=== PATIENT | male | born 1945 | race Caucasian/White ===

== ENCOUNTER 2024-12-31 11:13 | Emergency (ER) | payer MEDICARE, SELFPAY ==
[2024-12-31] VITALS (30 sets, daily range): BP systolic 88–137; BP diastolic 51–99; PULSE 54–69; RESP 10–22; TEMP 35.7; O2SAT 84–99; BMI 22.6
--- NOTE | 2024-12-31 11:59 | CRLHL7_ITS ---
For Patients: As a result of the Century Cures Act, medical imaging exams and procedure reports are released immediately into your electronic medical record. You may view this report before your referring provider. If you have questions, please contact your health care provider. INDICATION: FALL TODAY. VERTIGO X 2 DAYS. (Sic) COMPARISON: None available. TECHNIQUE: CT of the head without intravenous contrast. Please note that all CT scans at this facility use dose modulation, iterative reconstruction, and/or weight-based dosing when appropriate to reduce radiation dose to as low as reasonably achievable. FINDINGS: No acute traumatic injury is identified. No acute infarct. No intracranial mass or mass effect. No hydrocephalus. No intracranial hemorrhage. Incidental bilateral cerebral white matter heterogeneous hypoattenuation consistent with small-vessel distribution chronic ischemic gliotic changes. 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 RapidAI ASPECTS Score: Not performed/available at the time of dictation. Intact skull base and cranial vault. Visualized orbits are without significant incidental findings. Bilateral lens implants. Near-complete opacification of the right maxillary sinus. Left maxillary sinus retention cyst. Visualized paranasal sinuses and mastoid air cells are otherwise clear. Unremarkable soft tissues. IMPRESSION: 1. No acute traumatic injury is identified. 2. No significant incidental findings. 3. Additional findings as above. Please note that all CT scans at this facility use dose modulation, iterative reconstruction, and/or weight-based dosing when appropriate to reduce radiation dose to as low as reasonably achievable. Dictated by Michael London MD @ 12/31/2024 12:35:16 PM (Electronically Signed)
--- NOTE | 2024-12-31 12:15 | ED.GENADULT ---
HPI - General Adult General Date Seen: 12/31/24 Chief complaint: Dizziness/Vertigo Stated complaint: dizzy different then normal Time Seen by Provider: 12/31/24 11:16 History of Present Illness HPI narrative: Patient is a 79-year-old here with his daughter for evaluation after a fall. Past medical history notable for congestive heart failure, EF of 15%, as well as renal failure, with a recent hospitalization at [facility]. He was discharged from there on November 27 and then was at [facility] it sounds like for a little rehab until the . 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 He has recently transitioned over to [place] and his daughter says that his mangle catcher, recreation supervisor and primary doctor all with them now. He does have an appointment tomorrow with his primary doctor for hospital follow-up. Today he was in the kitchen, he says that he had tips his head back to drink and got dizzy lost his balance and fell hitting the front of his head and landing on his right knee. He did not have any other vertiginous symptoms and is not symptomatic now, he feels that it was set off by tipping his head back to quickly. He does note for the past week he has been feeling kind of sluggish, fatigued, has had some lightheadedness with standing. He has been on a strict 1500 mL a day fluid restriction which he says his daughter has kept him on without fail. He did have a little extra fluid yesterday and fell he tolerated that well. His weight was 163 when he was discharged and is down to 157. It sounds like there was not a plan to try and pull more fluid off after he left the hospital but he does note that his weight continues to decrease. He is on torsemide for diuretic. His creatinine went up to about 1.9 but was at 1.57 at discharge and his daughter says that the recreation supervisor was happy with that. He has not had chest pain, has not had any difficulty breathing, cough or other respiratory symptoms. Related Data Home Medications ?Medication ?Instructions ?Recorded ?Confirmed apixaban 5 mg tablet 5 mg PO BID 12/31/24 12/31/24 brimonidine 0.2 % eye drops 1 drp ophthalmic (eye) BID 12/31/24 12/31/24 bupropion HCl 100 mg tablet,12 hr 100 mg PO BID 12/31/24 12/31/24 sustained-release (Wellbutrin SR) carvedilol 6.25 mg tablet 6.25 mg PO BID 12/31/24 12/31/24 cholecalciferol (vitamin D3) 50 125 mcg PO QDAY 12/31/24 12/31/24 mcg (2,000 unit) capsule (Vitamin D3) dorzolamide 22.3 mg-timolol 6.8 1 drp ophthalmic (eye) BID 12/31/24 12/31/24 mg/mL eye drops duloxetine 30 mg capsule,delayed 30 mg PO DAILY 12/31/24 12/31/24 release sprinkle (Drizalma Sprinkle) empagliflozin 25 mg-linagliptin 5 1 tab PO DAILY 12/31/24 12/31/24 mg tablet evolocumab 140 mg/mL subcutaneous 140 mg subcut Q2W 12/31/24 12/31/24 pen injector insulin aspart U-100 100 unit/mL 6 unit subcut TID 12/31/24 12/31/24 (3 mL) subcutaneous pen (Novolog FlexPen U-100 Insulin aspart) insulin glargine 100 unit/mL (3 30 unit subcut QAM 12/31/24 12/31/24 mL) subcutaneous pen levothyroxine 150 mcg capsule 150 mcg PO DAILY 12/31/24 12/31/24 loratadine 10 mg capsule (Allergy 10 mg PO DAILY 12/31/24 12/31/24 Relief (loratadine)) omeprazole 40 mg capsule,delayed 40 mg PO DAILY 12/31/24 12/31/24 release sildenafil 25 mg tablet 25 mg PO DAILY PRN 12/31/24 12/31/24 torsemide 20 mg tablet 20 mg PO DAILY 12/31/24 12/31/24 valsartan 80 mg tablet (Diovan) 80 mg PO BID 12/31/24 12/31/24 Allergies Allergy/AdvReac Type Severity Reaction Status Date / Time glipizide Allergy Intermediate Muscle Pain Verified 12/31/24 11:43 Iodinated Contrast Media Allergy Mild nausea and Verified 12/31/24 11:43 vomiting lisinopril Allergy Mild Cough Verified 12/31/24 11:43 [id number] Reductase Allergy Mild muscle pain Verified 12/31/24 11:43 Inhibitor amiodarone Allergy Unknown Verified 12/31/24 11:43 glyburide Allergy Unknown Verified 12/31/24 11:43 metformin Allergy Unknown Verified 12/31/24 11:43 metoprolol Allergy Unknown Verified 12/31/24 11:43 pioglitazone Allergy Unknown Verified 12/31/24 11:43 sitagliptin Allergy Unknown Verified 12/31/24 11:43 contrast dye Allergy Mild N an V Uncoded 12/31/24 11:43 Review of Systems Status of ROS: Reports: 10 or more systems reviewed and unremarkable except as noted in History and below [facility] Social History Smoking Status: Never smoker How often do you have a drink containing alcohol: never AUDIT-C Alcohol total score: 0 Non-prescribed substance use: denies use Exam Narrative: Exam Narrative: Vital signs reviewed In general, alert, nontoxic elderly male, breathing easily. Head: Normocephalic. He has a reddened area by his right eyebrow, no significant hematoma, no laceration. Eyes: Sclera clear. Pupils equal and reactive. Extraocular movements are full. ENT: Mucous membranes moist. Small red kenny over the right bridge of his nose, no bony tenderness or deformity. No epistaxis. Dentition intact. Neck: Supple without adenopathy. Nontender to palpation. Heart: Regular rate and rhythm without murmur. Lungs: Clear. No increased work of breathing, crackles or wheezes. Abdomen: Soft, nontender to palpation. Extremities: Well perfused, pulses intact. No significant edema. Bruising and the small abrasion on the right knee, no bony tenderness, no obvious effusion, full range of motion. Neurologic: Alert, conversant. Speech fluent, face symmetric. Moves all extremities equally. Skin: Warm, dry well perfused. Affect: Normal. Const: Vital Signs, click to edit/add: Vital Signs - 24 hr 12/31/24 11:20 12/31/24 11:59 12/31/24 12:27 Temperature 96.2 F L Pulse Rate 62 Pulse Rate [Right Pulse Oximeter] 62 Pulse Rate [orthos tatic lying Pulse Oximeter] Pulse Rate [orthos tatic sitting Puls e Oximeter] Pulse Rate [orthos tatic standing Pul se Oximeter] Respiratory Rate 16 14 Blood Pressure Blood Pressure [Le ft Upper Arm] 88/51 L Blood Pressure [or thostatic lying Ri ght Arm] Blood Pressure [or thostatic sitting Right Arm] Blood Pressure [or thostatic standing Right Arm] Pulse Oximetry 99 99 96 Oxygen Delivery Me thod Room Air 12/31/24 12:30 12/31/24 12:31 12/31/24 12:34 Temperature Pulse Rate 60 63 58 L Pulse Rate [Right Pulse Oximeter] Pulse Rate [orthos tatic lying Pulse Oximeter] Pulse Rate [orthos tatic sitting Puls e Oximeter] Pulse Rate [orthos tatic standing Pul se Oximeter] Respiratory Rate 22 Blood Pressure 135/89 126/95 H Blood Pressure [Le ft Upper Arm] Blood Pressure [or thostatic lying Ri ght Arm] Blood Pressure [or thostatic sitting Right Arm] Blood Pressure [or thostatic standing Right Arm] Pulse Oximetry 99 92 99 Oxygen Delivery Me thod 12/31/24 12:35 12/31/24 12:36 12/31/24 12:38 Temperature Pulse Rate 58 L 60 Pulse Rate [Right Pulse Oximeter] Pulse Rate [orthos tatic lying Pulse Oximeter] 64 Pulse Rate [orthos tatic sitting Puls e Oximeter] 63 Pulse Rate [orthos tatic standing Pul se Oximeter] 60 Respiratory Rate 13 Blood Pressure 108/76 Blood Pressure [Le ft Upper Arm] Blood Pressure [or thostatic lying Ri ght Arm] 135/89 Blood Pressure [or thostatic sitting Right Arm] 126/95 H Blood Pressure [or thostatic standing Right Arm] 108/76 Pulse Oximetry 97 Oxygen Delivery Me thod 12/31/24 12:47 12/31/24 13:00 12/31/24 13:02 Temperature Pulse Rate 61 61 63 Pulse Rate [Right Pulse Oximeter] Pulse Rate [orthos tatic lying Pulse Oximeter] Pulse Rate [orthos tatic sitting Puls e Oximeter] Pulse Rate [orthos tatic standing Pul se Oximeter] Respiratory Rate 10 L 12 Blood Pressure 134/79 Blood Pressure [Le ft Upper Arm] Blood Pressure [or thostatic lying Ri ght Arm] Blood Pressure [or thostatic sitting Right Arm] Blood Pressure [or thostatic standing Right Arm] Pulse Oximetry 96 91 99 Oxygen Delivery Me thod 12/31/24 13:15 12/31/24 13:30 12/31/24 13:31 Temperature Pulse Rate 60 61 Pulse Rate [Right Pulse Oximeter] Pulse Rate [orthos tatic lying Pulse Oximeter] Pulse Rate [orthos tatic sitting Puls e Oximeter] Pulse Rate [orthos tatic standing Pul se Oximeter] Respiratory Rate 10 L 16 Blood Pressure 133/84 Blood Pressure [Le ft Upper Arm] Blood Pressure [or thostatic lying Ri ght Arm] Blood Pressure [or thostatic sitting Right Arm] Blood Pressure [or thostatic standing Right Arm] Pulse Oximetry 99 98 Oxygen Delivery Mn thod 12/31/24 13:45 12/31/24 14:00 12/31/24 14:02 Temperature Pulse Rate 57 L 61 54 L Pulse Rate [Right Pulse Oximeter] Pulse Rate [orthos tatic lying Pulse Oximeter] Pulse Rate [orthos tatic sitting Puls e Oximeter] Pulse Rate [orthos tatic standing Pul se Oximeter] Respiratory Rate 20 Blood Pressure 137/99 H Blood Pressure [Le ft Upper Arm] Blood Pressure [or thostatic lying Ri ght Arm] Blood Pressure [or thostatic sitting Right Arm] Blood Pressure [or thostatic standing Right Arm] Pulse Oximetry 97 95 94 Oxygen Delivery Mn thod 12/31/24 14:15 12/31/24 14:30 12/31/24 14:34 Temperature Pulse Rate 60 58 L 61 Pulse Rate [Right Pulse Oximeter] Pulse Rate [orthos tatic lying Pulse Oximeter] Pulse Rate [orthos tatic sitting Puls e Oximeter] Pulse Rate [orthos tatic standing Pul se Oximeter] Respiratory Rate 10 L 11 L 13 Blood Pressure Blood Pressure [Le ft Upper Arm] Blood Pressure [or thostatic lying Ri ght Arm] Blood Pressure [or thostatic sitting Right Arm] Blood Pressure [or thostatic standing Right Arm] Pulse Oximetry 98 99 84 L Oxygen Delivery Mn thod 12/31/24 14:45 12/31/24 15:04 12/31/24 15:15 Temperature Pulse Rate 60 59 L Pulse Rate [Right Pulse Oximeter] Pulse Rate [orthos tatic lying Pulse Oximeter] Pulse Rate [orthos tatic sitting Puls e Oximeter] Pulse Rate [orthos tatic standing Pul se Oximeter] Respiratory Rate 15 14 11 L Blood Pressure Blood Pressure [Le ft Upper Arm] Blood Pressure [or thostatic lying Ri ght Arm] Blood Pressure [or thostatic sitting Right Arm] Blood Pressure [or thostatic standing Right Arm] Pulse Oximetry 96 97 Oxygen Delivery Me thod Course Course ED Course: Patient presents after a fall, with a 1 week history of fatigue and some lightheadedness with standing. Symptoms today leading to the fall sound like a positional vertigo episode, as he does not have any persistent symptoms to suggest a stroke. His blood pressure initially recorded was 88 systolic although he says that the cuff was over his sweatshirt at that time. When I was in the room his blood pressure was 132/86. Will check orthostatics, with continuing weight loss post hospitalization it may be that he is a little over diuresed at this point. Other diagnostic considerations would include metabolic derangement, arrhythmia, anemia, among others. I did receive some records on him from his recreation supervisor in [place]. They note the following: -ROBINSON with a peak creatinine of 2.12 on November 20 and then trended to prior baseline -Hypertension on valsartan, carvedilol, Jardiance, torsemide. Blood pressure tends to run low in the 100s over 60s. Frequent dizzy spells. -Mild hyponatremia -Coronary artery disease status post angiogram on 11/23/2024 with nonobstructive coronary artery disease, history of a flutter, anticoagulated with Eliquis. -CHF for years, most recent echo EF decreased to 15% in October of 2024. Dry weight 160-162. Evaluation here was notable for an initial troponin of 0.08, a normal white count, hemoglobin of 17.7. Mild hyponatremia at 1:28 a.m., potassium normal. BUN 45, creatinine 1.4 with a GFR 52, this is improved from previous. Blood sugar 135. LFTs unremarkable. BNP was 28 70, most recently when it was checked it was around 2100. I reviewed his head CT, I did not see evidence of hemorrhage or fracture. Radiology likewise read it negative for anything acute. They did note changes consistent with asymptomatic ventriculomegaly with features of normal pressure hydrocephalus. Patient does not have any findings suggestive of normal pressure hydrocephalus such as incontinence, gait disturbance or dementia. As such I think this is purely an incidental finding at this time. With regard to his troponin, I did check a 2 hour troponin and this was increased at 0.5. I talked with the mangle catcher on-call for [facility] [employer]. Patient did just have an angiogram a month ago that showed nonocclusive disease. Cardiology reviewed his records, and in the absence of chest pain, recommended no further action regarding these troponins. Discussed that with the patient and his daughter. They are comfortable with discharge. He will follow-up tomorrow as planned with his regular clinic doctor. Discussed that if he does develop chest pain or has other severe symptoms such as shortness of breath, nausea vomiting, fainting etcetera he should come back to the emergency department. Orthostatic vital signs were negative here. From a fluid standpoint, his BNP is mildly increased compared to previous, his kidney function is also mildly improved, but he is not showing signs of clinical fluid overload and his weight is below his recommended dry weight according to them. I recommended that he continue with his 1500 mL a day of fluid restriction. Vital Signs Vital signs: Initial Vital Signs Temperature 96.2 F L 12/31/24 11:20 Temperature Source Temporal Artery Scan 12/31/24 11:20 Pulse Rate 62 12/31/24 11:20 Respiratory Rate 16 12/31/24 11:20 Blood Pressure 88/51 L 12/31/24 11:20 Blood Pressure Mean 63 L 12/31/24 11:20 Blood Pressure Position Sitting 12/31/24 11:20 Pulse Oximetry 99 12/31/24 11:20 Oxygen Delivery Method Room Air 12/31/24 11:20 Vital Signs Temperature 96.2 F L 12/31/24 11:20 Pulse Rate 62 12/31/24 11:20 Respiratory Rate 16 12/31/24 11:20 Blood Pressure 88/51 L 12/31/24 11:20 Pulse Oximetry 99 12/31/24 11:20 Oxygen Delivery Method Room Air 12/31/24 11:20 Temperature 96.2 F L 12/31/24 11:20 Pulse Rate 59 L 12/31/24 15:15 Respiratory Rate 11 L 12/31/24 15:15 Blood Pressure 137/99 H 12/31/24 14:02 Pulse Oximetry 97 12/31/24 15:15 Oxygen Delivery Method Room Air 12/31/24 11:20 Medical Decision Making Lab Data Lab results reviewed: Yes I reviewed the patient's lab results Labs: Lab Results 12/31/24 12/31/24 12/31/24 Range/Units 11:59 12:05 14:15 WBC 8.90 (4.50-11.00) K/uL RBC 5.93 H (4.30-5.90) m/uL Hgb 17.7 H (13.5-17.5) gm/dL Hct 52.7 (37.0-53.0) % MCV 89 (80-100) fL MCH 30 (26-34) pg MCHC 34 (32-36) gm/dL RDW Coeff of Gustavo 12.0 (11.5-15.5) % Plt Count 151 (140-440) K/uL Neut % (Auto) 69.0 (42.0-72.0) % Lymph % (Auto) 16.5 L (20-44) % Villalba % (Auto) 12.9 H (0.0-11.0) % Eos % (Auto) 1.2 (0.0-7.0) % Baso % (Auto) 0.2 (0.0-3.0) % Neut # (Auto) 6.13 (1.7-7.0) K/uL Lymph # (Auto) 1.50 (0.90-2.90) K/uL Villalba # (Auto) 1.10 H (0.00-0.90) K/UL Eos # (Auto) 0.11 (0.00-0.50) K/uL Baso # (Auto) 0.02 (0.00-0.30) K/uL Abs Immat Gran (auto) 0.02 (0.00-0.30) K/uL Imm/Tot Granulo (auto) 0.2 % Sodium 128 L (135-149) mmol/L Potassium 3.7 (3.6-5.1) mmol/L Chloride 91 L (96-114) mmol/L Carbon Dioxide 32 (20-32) mmol/L Anion Gap 5 L (7-15) mEq/L BUN 45 H (7-30) mg/dL Creatinine 1.4 (0.5-1.5) mg/dL Estimated Creat Clear 44.68 Estimated GFR 52 ml/min Glucose 135 H (60-115) mg/dL Calcium 8.7 (8.4-10.6) mg/dL Magnesium 2.3 (1.5-2.6) mg/dL Total Bilirubin 0.8 (0.1-1.5) mg/dL AST 41 H (12-35) U/L ALT 39 (4-50) U/L Alkaline Phosphatase 103 (40-150) U/L Troponin I 0.08 H* 0.50 H* (0.01-0.04) ng/mL NT-Pro-B Natriuret Pep 2870 H (See Note) pg/mL Total Protein 6.7 (6.0-8.3) g/dL Albumin 4.0 (3.3-5.0) g/dL POC Troponin I 0.07 H (0.01-0.04) ng/ml Imaging Data CT scan - head: Attestation: I have reviewed the pertinent imaging results. Radiologist's impression: Patient: Michael Juarez MR#: [id number] : 1945 Acct:[id number] Loc: ED Service Date: 12/31/[address]: Ordering Physician: Carri Valentine M.D. Date of Service: 12/31/24 Procedure(s): CT head/brain wo con Accession Number(s): [id number] cc: Carri Valentine M.D.; Provider,Not a Local~ For Patients: As a result of the Cures Act, medical imaging exams and procedure reports are released immediately into your electronic medical record. You may view this report before your referring provider. If you have questions, please contact your health care provider. INDICATION: FALL TODAY. VERTIGO X 2 DAYS. (Sic) COMPARISON: None available. TECHNIQUE: CT of the head without intravenous contrast. Please note that all CT scans at this facility use dose modulation, iterative reconstruction, and/or weight-based dosing when appropriate to reduce radiation dose to as low as reasonably achievable. FINDINGS: No acute traumatic injury is identified. No acute infarct. No intracranial mass or mass effect. No hydrocephalus. No intracranial hemorrhage. Incidental bilateral cerebral white matter heterogeneous hypoattenuation consistent with small-vessel distribution chronic ischemic gliotic changes. 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 RapidAI ASPECTS Score: Not performed/available at the time of dictation. Intact skull base and cranial vault. Visualized orbits are without significant incidental findings. Bilateral lens implants. Near-complete opacification of the right maxillary sinus. Left maxillary sinus retention cyst. Visualized paranasal sinuses and mastoid air cells are otherwise clear. Unremarkable soft tissues. IMPRESSION: 1. No acute traumatic injury is identified. 2. No significant incidental findings. 3. Additional findings as above. Please note that all CT scans at this facility use dose modulation, iterative reconstruction, and/or weight-based dosing when appropriate to reduce radiation dose to as low as reasonably achievable. Dictated by Michael London MD @ 12/31/2024 12:35:16 PM Patient: Michael Juarez MR#: [id number] : 1945 Acct:[id number] Loc: ED Service Date: 12/31/[address]: Ordering Physician: Carri Valentine M.D. Date of Service: 12/31/24 Procedure(s): CT head/brain wo con Accession Number(s): [id number] cc: Carri Valentine M.D.; Provider,Not a Local~ ADDENDUM INDICATION: FALL TODAY. VERTIGO X 2 DAYS. (Sic) COMPARISON: None available. TECHNIQUE: CT of the head without intravenous contrast. Please note that all CT scans at this facility use dose modulation, iterative reconstruction, and/or weight-based dosing when appropriate to reduce radiation dose to as low as reasonably achievable. FINDINGS: No acute traumatic injury is identified. No acute infarct. No intracranial mass or mass effect. No hydrocephalus. No intracranial hemorrhage. Incidental bilateral cerebral white matter heterogeneous hypoattenuation consistent with small-vessel distribution chronic ischemic gliotic changes. 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 RapidAI ASPECTS Score: Not performed/available at the time of dictation. Intact skull base and cranial vault. Visualized orbits are without significant incidental findings. Bilateral lens implants. Near-complete opacification of the right maxillary sinus. Left maxillary sinus retention cyst. Visualized paranasal sinuses and mastoid air cells are otherwise clear. Unremarkable soft tissues. IMPRESSION: 1. No acute traumatic injury is identified. 2. No significant incidental findings. 3. Additional findings as above. Please note that all CT scans at this facility use dose modulation, iterative reconstruction, and/or weight-based dosing when appropriate to reduce radiation dose to as low as reasonably achievable. Dictated by Michael London MD @ 12/31/2024 12:35:16 PM ----- ADDENDUM ----- ADDENDUM: Incidental note is made of ventriculomegaly, bilateral sylvian fissure widening, upward bowing of the corpus callosum with an acute callosal angle, and narrow sulci and subarachnoid spaces at the vertex are consistent with disproportionately enlarged subarachnoid space hydrocephalus. 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 Dictated by Michael London MD @ Dec 31 2024 12:39PM ----- ADDENDUM ----- ADDENDUM: Addendum receipt by the ordering provider Block at 1244 hours [employer]. Dictated by Michael London MD @ Dec 31 2024 12:45PM Discharge Plan Discharge Clinical Impression: Fall, Dizziness Patient Disposition: Home, Self-Care Condition: Improved Additional Instructions: Your tests today are generally reassuring. Your troponin is slightly elevated but stable, your creatinine is improved at 1.4. Your head CT does not show any sign of acute injury. Events today are not suggestive of stroke. I would recommend that you see your primary doctor tomorrow as planned. For now, it seems that the 1500 mL a day fluid restriction is working well for you, as you seem to be euvolemic. Return any time for acute worsening or new symptoms. Prescriptions: No Action insulin glargine 100 unit/mL (3 mL) insulin pen 30 unit subcut QAM omeprazole 40 mg capsule,delayed release(DR/EC) 40 mg PO DAILY torsemide 20 mg tablet 20 mg PO DAILY bupropion HCl [Wellbutrin SR] 100 mg tablet sustained-release 12 hr 100 mg PO BID carvedilol 6.25 mg tablet 6.25 mg PO BID Rx Instructions: must administer with a meal/food valsartan [Diovan] 80 mg tablet 80 mg PO BID Drizalma Sprinkle 30 mg capsule, delayed rel sprinkle 30 mg PO DAILY brimonidine 0.2 % drops 1 drp ophthalmic (eye) BID Patient Comments: right eye dorzolamide-timolol 22.3-6.8 mg/mL drops 1 drp ophthalmic (eye) BID insulin aspart U-100 [Novolog FlexPen U-100 Insulin] 100 unit/mL (3 mL) insulin pen 6 unit subcut TID evolocumab 140 mg/mL pen injector 140 mg subcut Q2W apixaban 5 mg tablet 5 mg PO BID empagliflozin-linagliptin 25-5 mg tablet 1 tab PO DAILY levothyroxine 150 mcg capsule 150 mcg PO DAILY sildenafil 25 mg tablet 25 mg PO DAILY PRN Rx Instructions: administer 30 minutes to 4 hours before activity cholecalciferol (vitamin D3) [Vitamin D3] 50 mcg (2,000 unit) capsule 125 mcg PO QDAY Allergy Relief (loratadine) 10 mg capsule 10 mg PO DAILY Follow Up/Referrals: Provider,Not a Local [Primary Care Provider, Family Practice] Stand Alone [facility]: [facility] Instructions
[2024-12-31 12:17] LABS: Hematocrit* 52.7 % (37.0-53.0); Hemoglobin* 17.7 gm/dL (13.5-17.5); Immature Granulocytes Abs Auto 0.02 K/uL (0.00-0.30); Immature Granulocytes Pct Auto 0.2 %; Mean Corpuscular HGB Conc 34 gm/dL (32-36); Mean Corpuscular Hemoglobin 30 pg (26-34); Mean Corpuscular Volume 89 fL (80-100); RDW Coefficient of Variation % 12.0 % (11.5-15.5); Red Blood Count* 5.93 m/uL (4.30-5.90); White Blood Count* 8.90 K/uL (4.50-11.00)
[2024-12-31 12:25] LABS: Lymphocytes Absolute Auto 1.50 K/uL (0.90-2.90)
[2024-12-31 12:26] LABS: Slide Review Reflex No
[2024-12-31 12:29] LABS: Albumin* 4.0 g/dL (3.3-5.0); Chloride* 91 mmol/L (96-114); Potassium* 3.7 mmol/L (3.6-5.1); Sodium* 128 mmol/L (135-149)
[2024-12-31 12:32] LABS: Alanine Aminotransferase* 39 U/L (4-50); Alkaline Phosphatase* 103 U/L (40-150); Anion Gap 5 mEq/L (7-15); Aspartate Amino Transferase* 41 U/L (12-35); Bilirubin Total* 0.8 mg/dL (0.1-1.5); Blood Urea Nitrogen* 45 mg/dL (7-30); Calcium* 8.7 mg/dL (8.4-10.6); Carbon Dioxide* 32 mmol/L (20-32); Creatinine* 1.4 mg/dL (0.5-1.5); Est. Creatinine Clearance* 44.68; Estimated Glomerular Filt Rate 52 ml/min; Glucose* 135 mg/dL (60-115); Total Protein* 6.7 g/dL (6.0-8.3)
[2024-12-31 12:38] LABS: Troponin, Point-of-Care* 0.07 ng/ml (0.01-0.04)
[2024-12-31 12:43] LABS: NT Pro B Type NatriureticPept* 2870 pg/mL (See Note)
== END 2024-12-31 17:15 | disposition home or self-care (01) ==
PROVIDERS: Emergency Provider Emergency Medicine
DX: S09.90XA Unspecified injury of head, initial encounter (principal); R42 Dizziness and giddiness; W19.XXXA Unspecified fall, initial encounter
CPT/HCPCS: 36415; 70450; 80053; 83735; 83880; 84484; 85025; 93005; 94761; 99284; 99285